=== PATIENT | female | born 2000 | race Caucasian/White ===

== ENCOUNTER 2019-02-09 19:14 | Emergency (ER) | payer MEDICAID ==
[~2019-02-09] VITALS: Ht 165.1 cm; Wt 77.3 kg
[2019-02-09 20:44] VITALS: BP 138/78
== END 2019-02-09 20:44 | disposition home or self-care (01) ==
LOC: ER 19:14
DX: R51 Headache (principal); F12.10 Cannabis abuse, uncomplicated; K21.9 Gastro-esophageal reflux disease without esophagitis; R01.1 Cardiac murmur, unspecified
CPT/HCPCS: 99282

== ENCOUNTER 2022-06-06 08:00 | Emergency (ER) | payer MEDICAID ==
[~2022-06-06] VITALS: Ht 165.1 cm; Wt 107.0 kg
[2022-06-06] MEDS ORDERED: IBUPROFEN 600MG TABLET PO ONE (08:30)
[2022-06-06 09:09] VITALS: BP 129/86
[2022-06-06] MEDS ORDERED: IBUP-2029 MT (10:38)
== END 2022-06-06 11:12 | disposition home or self-care (01) ==
LOC: ER 08:13
DX: M25.561 Pain in right knee (principal); K21.9 Gastro-esophageal reflux disease without esophagitis; F12.10 Cannabis abuse, uncomplicated
CPT/HCPCS: 73562; 81025; 93970; 99284